=== PATIENT | female | born 1995 | race Two or more races ===

== ENCOUNTER 2023-09-17 14:24 | Emergency (ER) | payer MEDICAID, SELFPAY ==
[2023-09-17 14:32] VITALS: BP 104/61; PULSE 76; RESP 16; TEMP 36.3; O2SAT 100; BMI 25.4
--- NOTE | 2023-09-17 14:50 | ED_ITS ---
HPI - General Adult General Date Seen: 09/17/23 <Mariela Blas MD - Last Filed: 09/18/23 11:04> Chief complaint: Nausea/Vomiting <Mariela Blas MD - Last Filed: 09/18/23 11:04> Stated complaint: Severe morning sickness, weakness <Mariela Blas MD - Last Filed: 09/18/23 11:04> Time Seen by Provider: 09/17/23 14:33 <Mariela Blas MD - Last Filed: 09/18/23 11:04> Source: patient <Mariela Blas MD - Last Filed: 09/18/23 11:04> Mode of arrival: ambulatory <Mariela Blas MD - Last Filed: 09/18/23 11:04> Limitations: no limitations <Mariela Blas MD - Last Filed: 09/18/23 11:04> History of Present Illness HPI narrative: Patient is a 29-year-old woman who reports being she thinks 8 or 9 weeks although she is not sure when her last period was. She has had nausea and vomiting the last week and says she can not keep anything down. She does note at least 3 prior pregnancies with children, she says she has had more than 1 miscarriage but she is not sure how many. Of her live pregnancies, she says she did have problems with nausea and vomiting, denies other complications. She says last year she was diagnosed with H pylori for which she was treated, but she feels like the nausea and vomiting this time are worse because of that diagnosis. She does have plans to see our OB Clinic here although she has not been seen yet. Last night she had some pain in her right upper quadrant which she relates to constipation. She does not have abdominal pain now and denies any bleeding. No urinary symptoms. She feels cold, no fevers that she is aware of. <Mariela Blas MD - Last Filed: 09/18/23 11:04> Related Data Allergies/adverse reactions: Allergies Allergy/AdvReac Type Severity Reaction Status Date / Time No Known Drug Allergies Allergy Verified 09/17/23 14:30 <Mariela Blas MD - Last Filed: 09/18/23 11:04> Review of Systems Status of ROS: Reports: 6 or more systems reviewed and unremarkable except as noted in History and below <Mariela Blas MD - Last Filed: 09/18/23 11:04> [facility] Social History: Social History Smoking Status: Never smoker How often do you have a drink containing alcohol: never AUDIT-C Alcohol total score: 0 Non-prescribed substance use: denies use <Mariela Blas MD - Last Filed: 09/18/23 11:04> Exam Narrative: Exam Narrative: Vital signs as noted above. In general, an alert, well-appearing patient. Head: Normocephalic, atraumatic. Eyes: Pupils are equal reactive. Extraocular movements are full. Conjunctivae are normal. ENT: Mucous membranes are moist, lips are slightly dry. Neck: Supple without lymphadenopathy. Heart: Regular rate and rhythm. No murmur or rub. Lungs: Clear bilaterally. No increased work of breathing, crackles or wheezes. Abdomen: Soft and nontender. No organomegaly. Extremities: Well perfused. No edema. No calf tenderness. Pulses intact. Neurologic: Patient is alert and oriented to person and place. Speech is fluent. Face is symmetric. Moves all extremities equally. Affect: Normal. Skin: Warm and dry. Well perfused. <Mariela Blas MD - Last Filed: 09/18/23 11:04> Const: Vital Signs, click to edit/add: Vital Signs - 24 hr 09/17/23 14:32 Temperature 97.4 F L Pulse Rate [Pulse Oximeter] 76 Respiratory Rate 16 Blood Pressure [Ri ght Upper Arm] 104/61 Pulse Oximetry 100 Oxygen Delivery Me thod Room Air <Mariela Blas MD - Last Filed: 09/18/23 11:04> Vital Signs, click to edit/add: Vital Signs - 24 hr 09/17/23 14:32 Temperature 97.4 F L Pulse Rate [Pulse Oximeter] 76 Respiratory Rate 16 Blood Pressure [Ri ght Upper Arm] 104/61 Pulse Oximetry 100 Oxygen Delivery Me thod Room Air <Fer Hull MD - Last Filed: 09/17/23 16:47> Documenting provider has reviewed patient's vital signs: yes <Mariela Blas MD - Last Filed: 09/18/23 11:04> Course Course ED Course: Will hydrate with some IV normal saline mom gave her some Zofran. Will check some basic labs and just confirm with a quant hCG. Would not appear she needs other specific evaluation today. Labs are reassuring, UA was pending at the time of my departure. Signed out to the oncoming physician. Quant HCG was also ordered just to confirm . No indication for ultrasound today. She was able to eat and drink throughout her time here, no vomiting while here, did have a L of fluid and some Zofran, will prescribe Zofran for home and recommend OB follow-up this week for reassessment. Return any time for new symptoms such as abdominal pain or vaginal bleeding, otherwise, Zofran as needed encourage fluids. <Mariela Blas MD - Last Filed: 09/18/23 11:04> Vital Signs Vital signs: Initial Vital Signs Temperature 97.4 F L 09/17/23 14:32 Temperature Source Temporal Artery Scan 09/17/23 14:32 Pulse Rate 76 09/17/23 14:32 Respiratory Rate 16 09/17/23 14:32 Blood Pressure 104/61 09/17/23 14:32 Blood Pressure Mean 75 09/17/23 14:32 Blood Pressure Position Sitting 09/17/23 14:32 Pulse Oximetry 100 09/17/23 14:32 Oxygen Delivery Method Room Air 09/17/23 14:32 Vital Signs Temperature 97.4 F L 09/17/23 14:32 Pulse Rate 76 09/17/23 14:32 Respiratory Rate 16 09/17/23 14:32 Blood Pressure 104/61 09/17/23 14:32 Pulse Oximetry 100 09/17/23 14:32 Oxygen Delivery Method Room Air 09/17/23 14:32 Temperature 97.4 F L 09/17/23 14:32 Pulse Rate 76 09/17/23 14:32 Respiratory Rate 16 09/17/23 14:32 Blood Pressure 104/61 09/17/23 14:32 Pulse Oximetry 100 09/17/23 14:32 Oxygen Delivery Method Room Air 09/17/23 14:32 <Mariela Blas MD - Last Filed: 09/18/23 11:04> Initial Vital Signs Temperature 97.4 F L 09/17/23 14:32 Temperature Source Temporal Artery Scan 09/17/23 14:32 Pulse Rate 76 09/17/23 14:32 Respiratory Rate 16 09/17/23 14:32 Blood Pressure 104/61 09/17/23 14:32 Blood Pressure Mean 75 09/17/23 14:32 Blood Pressure Position Sitting 09/17/23 14:32 Pulse Oximetry 100 09/17/23 14:32 Oxygen Delivery Method Room Air 09/17/23 14:32 Vital Signs Temperature 97.4 F L 09/17/23 14:32 Pulse Rate 76 09/17/23 14:32 Respiratory Rate 16 09/17/23 14:32 Blood Pressure 104/61 09/17/23 14:32 Pulse Oximetry 100 09/17/23 14:32 Oxygen Delivery Method Room Air 09/17/23 14:32 Temperature 97.4 F L 09/17/23 14:32 Pulse Rate 76 09/17/23 14:32 Respiratory Rate 16 09/17/23 14:32 Blood Pressure 104/61 09/17/23 14:32 Pulse Oximetry 100 09/17/23 14:32 Oxygen Delivery Method Room Air 09/17/23 14:32 <Fer Hull MD - Last Filed: 09/17/23 16:47> Medications Administered Medications: Discontinued Medications Generic Name Dose Route Start Last Admin Trade Name Freq PRN Reason Stop Dose Admin Sodium Chloride 1,000 mls @ 1,000 mls/hr 09/17/23 15:00 09/17/23 15:46 0.9 % Sodium Chloride 1000 Ml IV 09/17/23 15:59 Infused .Q1H JAMAL Infusion Ondansetron HCl 4 mg 09/17/23 14:48 09/17/23 15:12 Ondansetron 2 Mg/Ml Inj IVP 09/17/23 14:49 4 mg ONCE ONE Administration <Mariela Blas MD - Last Filed: 09/18/23 11:04> Discontinued Medications Generic Name Dose Route Start Last Admin Trade Name Freq PRN Reason Stop Dose Admin Sodium Chloride 1,000 mls @ 1,000 mls/hr 09/17/23 15:00 09/17/23 15:46 0.9 % Sodium Chloride 1000 Ml IV 09/17/23 15:59 Infused .Q1H JAMAL Infusion Ondansetron HCl 4 mg 09/17/23 14:48 07/20/24 15:12 Ondansetron 2 Mg/Ml Inj IVP 09/17/23 14:49 4 mg ONCE ONE Administration <Fer Hull MD - Last Filed: 09/17/23 16:47> Medical Decision Making MDM Narrative Medical decision making narrative: Lab results returned with reassuring findings. Her quantitative beta hCG is appropriate for her gestational age of . A prescription for Zofran is provided. <Fer Hull MD - Last Filed: 09/17/23 16:47> Lab Data Labs: Lab Results 09/17/23 09/17/23 Range/Units 15:05 15:49 WBC 6.11 (4.50-11.00) K/uL RBC 4.45 (4.00-5.20) m/uL Hgb 11.8 L (12.0-16.0) gm/dL Hct 36.0 (33.0-51.0) % MCV 81 (80-100) fL MCH 27 (26-34) pg MCHC 33 (32-36) gm/dL RDW Coeff of Sandrine 16.3 H (11.5-15.5) % Plt Count 319 (140-440) K/uL Neut % (Auto) 63.3 (42.0-72.0) % Lymph % (Auto) 28.8 (20-44) % [place] % (Auto) 6.4 (0.0-11.0) % Eos % (Auto) 0.8 (0.0-7.0) % Baso % (Auto) 0.5 (0.0-3.0) % Neut # (Auto) 3.87 (1.7-7.0) K/uL Lymph # (Auto) 1.76 (0.90-2.90) K/uL [place] # (Auto) 0.40 (0.00-0.90) K/UL Eos # (Auto) 0.05 (0.00-0.50) K/uL Baso # (Auto) 0.03 (0.00-0.30) K/uL Abs Immat Gran (auto) 0.01 (0.00-0.30) K/uL Imm/Tot Granulo (auto) 0.2 % Sodium 134 L (135-149) mmol/L Potassium 3.7 (3.6-5.1) mmol/L Chloride 104 (96-114) mmol/L Carbon Dioxide 23 (20-32) mmol/L Anion Gap 7 (7-15) mEq/L BUN 5 (5-24) mg/dL Creatinine 0.5 (0.5-1.5) mg/dL Estimated Creat Clear 143.36 Estimated GFR 130 ml/min Glucose 102 (60-115) mg/dL Calcium 9.3 (8.4-10.6) mg/dL Magnesium 1.8 (1.5-2.6) mg/dL HCG, Quant 203560.00 mIU/mL Urine Color Yellow (Yellow) Urine Appearance Clear (Clear) Urine pH 7.0 (5.0-8.5) Ur Specific [place] 1.010 (1.000-1.030) Urine Protein Negative (Negative) Urine Glucose (UA) Negative (Negative) Urine Ketones Negative (Negative) Urine Blood Negative (Negative) Urine Nitrite Negative (Negative) Urine Bilirubin Negative (Negative) Urine Urobilinogen 0.2 (0.2-1.0) Ur Leukocyte Esterase Trace A (Negative) Urine RBC 0-2 (0-2) Urine WBC 2-5 (0-5) Ur Squamous Epith Cells Few (None-Few) Urine Bacteria None (None) <Mariela Blas MD - Last Filed: 09/18/23 11:04> Lab Results 09/17/23 09/17/23 Range/Units 15:05 15:49 WBC 6.11 (4.50-11.00) K/uL RBC 4.45 (4.00-5.20) m/uL Hgb 11.8 L (12.0-16.0) gm/dL Hct 36.0 (33.0-51.0) % MCV 81 (80-100) fL MCH 27 (26-34) pg MCHC 33 (32-36) gm/dL RDW Coeff of Sandrine 16.3 H (11.5-15.5) % Plt Count 319 (140-440) K/uL Neut % (Auto) 63.3 (42.0-72.0) % Lymph % (Auto) 28.8 (20-44) % [place] % (Auto) 6.4 (0.0-11.0) % Eos % (Auto) 0.8 (0.0-7.0) % Baso % (Auto) 0.5 (0.0-3.0) % Neut # (Auto) 3.87 (1.7-7.0) K/uL Lymph # (Auto) 1.76 (0.90-2.90) K/uL [place] # (Auto) 0.40 (0.00-0.90) K/UL Eos # (Auto) 0.05 (0.00-0.50) K/uL Baso # (Auto) 0.03 (0.00-0.30) K/uL Abs Immat Gran (auto) 0.01 (0.00-0.30) K/uL Imm/Tot Granulo (auto) 0.2 % Sodium 134 L (135-149) mmol/L Potassium 3.7 (3.6-5.1) mmol/L Chloride 104 (96-114) mmol/L Carbon Dioxide 23 (20-32) mmol/L Anion Gap 7 (7-15) mEq/L BUN 5 (5-24) mg/dL Creatinine 0.5 (0.5-1.5) mg/dL Estimated Creat Clear 143.36 Estimated GFR 130 ml/min Glucose 102 (60-115) mg/dL Calcium 9.3 (8.4-10.6) mg/dL Magnesium 1.8 (1.5-2.6) mg/dL HCG, Quant 894573.00 mIU/mL Urine Color Yellow (Yellow) Urine Appearance Clear (Clear) Urine pH 7.0 (5.0-8.5) Ur Specific [place] 1.010 (1.000-1.030) Urine Protein Negative (Negative) Urine Glucose (UA) Negative (Negative) Urine Ketones Negative (Negative) Urine Blood Negative (Negative) Urine Nitrite Negative (Negative) Urine Bilirubin Negative (Negative) Urine Urobilinogen 0.2 (0.2-1.0) Ur Leukocyte Esterase Trace A (Negative) Urine RBC 0-2 (0-2) Urine WBC 2-5 (0-5) Ur Squamous Epith Cells Few (None-Few) Urine Bacteria None (None) <Fer Hull MD - Last Filed: 09/17/23 16:47> Discharge Plan Discharge Clinical Impression: Hyperemesis gravidarum <Mariela Blas MD - Last Filed: 09/18/23 11:04> Patient Disposition: Home, Self-Care <Mariela Blas MD - Last Filed: 09/18/23 11:04> Condition: Improved <Mariela Blas MD - Last Filed: 09/18/23 11:04> Instructions: Hyperemesis Gravidarum (ED) <Mariela Blas MD - Last Filed: 09/18/23 11:04> Additional Instructions: Zofran if needed for nausea. Please follow-up with OB Clinic in the next week. Return as needed for persistent symptoms despite treatment or new symptoms such as abdominal pain or bleeding. <Mariela Blas MD - Last Filed: 09/18/23 11:04> Follow Up/Referrals: Provider,Not a Local [Primary Care Provider] - <Mariela Blas MD - Last Filed: 09/18/23 11:04> Stand Alone Forms: [facility] Info Instructions <Mariela Blas MD - Last Filed: 09/18/23 11:04>
[2023-09-17 15:10] LABS: Basophils Absolute Auto 0.03 K/uL (0.00-0.30); Basophils Percent Auto 0.5 % (0.0-3.0); Eosinophils Absolute Auto 0.05 K/uL (0.00-0.50); Eosinophils Percent Auto 0.8 % (0.0-7.0); Hemoglobin* 11.8 gm/dL (12.0-16.0); Immature Granulocytes Abs Auto 0.01 K/uL (0.00-0.30); Immature Granulocytes Pct Auto 0.2 %; Lymphocytes Absolute Auto 1.76 K/uL (0.90-2.90); Lymphocytes Percent Auto 28.8 % (20-44); Mean Corpuscular HGB Conc 33 gm/dL (32-36); Mean Corpuscular Hemoglobin 27 pg (26-34); Mean Corpuscular Volume 81 fL (80-100); Monocytes Percent Auto 6.4 % (0.0-11.0); Neutrophils Absolute Auto 3.87 K/uL (1.7-7.0); Neutrophils Percent Auto 63.3 % (42.0-72.0); Platelet Count* 319 K/uL (140-440); RDW Coefficient of Variation % 16.3 % (11.5-15.5); Red Blood Count 4.45 m/uL (4.00-5.20); White Blood Count* 6.11 K/uL (4.50-11.00)
[2023-09-17] MEDS: 0.9 % SODIUM CHLORIDE 1000 ml 1,000 ML IV (15:10)
[2023-09-17] MEDS: ONDANSETRON 2 MG/ML inj 4 MG IVP (15:12)
[2023-09-17 15:13] LABS: Slide Review Reflex No
[2023-09-17 15:22] LABS: Chloride* 104 mmol/L (96-114); Sodium* 134 mmol/L (135-149)
[2023-09-17 15:23] LABS: Potassium* 3.7 mmol/L (3.6-5.1)
[2023-09-17 15:25] LABS: Anion Gap 7 mEq/L (7-15); Carbon Dioxide* 23 mmol/L (20-32); Creatinine* 0.5 mg/dL (0.5-1.5); Est. Creatinine Clearance* 143.36; Estimated Glomerular Filt Rate 130 ml/min; Magnesium* 1.8 mg/dL (1.5-2.6)
[2023-09-17 15:26] LABS: Blood Urea Nitrogen* 5 mg/dL (5-24); Calcium* 9.3 mg/dL (8.4-10.6); Glucose* 102 mg/dL (60-115)
[2023-09-17 15:54] LABS: Appearance Urine Clear (Clear); Bilirubin Urine Negative (Negative); Blood Urine Negative (Negative); Color Urine Yellow (Yellow); Glucose Urine Negative (Negative); Ketones Urine Negative (Negative); Leukocyte Esterase Urine Trace (Negative); Nitrite Urine Negative (Negative); Protein Urine Negative (Negative); Urobilinogen Urine 0.2 (0.2-1.0)
[2023-09-17 16:04] LABS: RBC Urine 0-2 (0-2); Squamous Epithelial Cell Urine Few (None-Few)
== END 2023-09-17 16:50 | disposition home or self-care (01) ==
PROVIDERS: Emergency Provider Emergency Medicine
DX: O21.0 Mild hyperemesis gravidarum (principal)
CPT/HCPCS: 36415; 80048; 81001; 83735; 84702; 85025; 87086; 96374; 99284; J2405; J7030

== ENCOUNTER 2023-09-28 16:08 | Emergency (ER) | payer MEDICAID, SELFPAY ==
[2023-09-28 16:13] VITALS: BP 105/64; PULSE 85; RESP 18; TEMP 35.7; O2SAT 98; BMI 25.5
--- NOTE | 2023-09-28 16:45 | ED_ITS ---
HPI - Nausea/Vomiting/Diarrhea General Date Seen: 09/28/23 Chief complaint: Nausea/Vomiting Stated complaint: HG Time Seen by Provider: 09/28/23 16:10 Source: patient Mode of arrival: ambulatory Limitations: no limitations History of Present Illness HPI Narrative: Patient is a 29-year-old female presenting to the emergency department for nausea and vomiting. She is 11 weeks . She was seen in this emergency department 11 days ago for similar symptoms. At that time she was discharged with Zofran with minimal improvement in her symptoms. She has been trying to get in with her OB [facility] but cannot get in until next Tuesday. Was told to come the emergency department if she has worsening symptoms. States due to the nausea and stomach cramping she has not been able to eat or drink much over the past couple weeks. Also states she has not had a bowel movement in a while is concerned she is constipated. Denies fevers, chills, vaginal bleeding, vaginal discharge, lightheadedness, dizziness, weakness, chest pain, shortness of breath. Has not had any complications with her previous pregnancies. States the 1st time she has had hyperemesis gravidarum. Related Data Home Medications ?Medication ?Instructions ?Recorded ?Confirmed ondansetron 4 mg disintegrating 4 mg PO 3XD PRN nausea/vomiting 09/28/23 09/28/23 tablet Previous Rx's ?Medication ?Instructions ?Recorded cephalexin 250 mg capsule 250 mg PO QID #20 caps 09/28/23 metoclopramide HCl 10 mg tablet 10 mg PO Q6H PRN nausea and 09/28/23 (Reglan) vomiting #20 tabs Allergies Allergy/AdvReac Type Severity Reaction Status Date / Time No Known Drug Allergies Allergy Verified 09/28/23 16:20 Review of Systems Status of ROS: Reports: 10 or more systems reviewed and unremarkable except as noted in History and below PFS PFS Social History Smoking Status: Never smoker Do you use any of these nicotine containing products: None Second hand tobacco smoke exposure: No How often do you have a drink containing alcohol: never AUDIT-C Alcohol total score: 0 Non-prescribed substance use: denies use service: No Exam Narrative: Exam Narrative: Const: Well-nourished, Well-developed, in mild distress Eyes: PERRL, no conjunctival injection, and symmetrical lids HENT: Atraumatic external nose and ears. Moist mucous membranes. Neck: Symmetric, trachea midline, No thyromegaly. CVS: RRR, No murmurs or gallops. Peripheral pulses 2+ and equal in all extremities RESP: Unlabored respiratory effort. Clear to auscultation bilaterally. GI: Nontender/Nondistended, No rebound or guarding. MSK:Extremities w/o deformity, Normal Active ROM Skin: Warm, Dry. No rashes or lesions. Neuro: Normal Muscle tone, No focal neurological deficits. Psych: Awake, Alert, & Oriented x3. Appropriate mood and affect. Const: Vital Signs, click to edit/add: Vital Signs - 24 hr 09/28/23 16:13 Temperature 96.2 F L Pulse Rate [Pulse Oximeter] 85 Respiratory Rate 18 Blood Pressure [Ri ght Upper Arm] 105/64 Pulse Oximetry 98 Oxygen Delivery Me thod Room Air Course Vital Signs Vital signs: Initial Vital Signs Temperature 96.2 F L 09/28/23 16:13 Temperature Source Temporal Artery Scan 09/28/23 16:13 Pulse Rate 85 09/28/23 16:13 Respiratory Rate 18 09/28/23 16:13 Blood Pressure 105/64 09/28/23 16:13 Blood Pressure Mean 77 09/28/23 16:13 Blood Pressure Position Sitting 09/28/23 16:13 Pulse Oximetry 98 09/28/23 16:13 Oxygen Delivery Method Room Air 09/28/23 16:13 Vital Signs Temperature 96.2 F L 09/28/23 16:13 Pulse Rate 85 09/28/23 16:13 Respiratory Rate 18 09/28/23 16:13 Blood Pressure 105/64 09/28/23 16:13 Pulse Oximetry 98 09/28/23 16:13 Oxygen Delivery Method Room Air 09/28/23 16:13 Temperature 96.2 F L 09/28/23 16:13 Pulse Rate 85 09/28/23 16:13 Respiratory Rate 18 09/28/23 16:13 Blood Pressure 105/64 09/28/23 16:13 Pulse Oximetry 98 09/28/23 16:13 Oxygen Delivery Method Room Air 09/28/23 16:13 Medications Administered Medications: Generic Name Dose Route Start Last Admin Trade Name Freq PRN Reason Stop Dose Admin Lactated Ringer's 1,000 mls @ 1,000 mls/hr 09/28/23 16:39 09/28/23 16:55 Lactated Ringers 1000 Ml IV 09/28/23 17:38 1,000 mls/hr .Q1H ONE Administration Discontinued Medications Generic Name Dose Route Start Last Admin Trade Name Freq PRN Reason Stop Dose Admin Metoclopramide HCl 10 mg 09/28/23 16:39 09/28/23 16:55 Metoclopramide Hcl 5 Mg/Ml Inj IVP 09/28/23 16:40 10 mg ONCE ONE Administration MDM - Nausea/Vomiting/Diarrhea MDM Narrative Medical decision making narrative: Patient is a 29-year-old female presenting for nausea and vomiting. She has been trying Zofran home with no improvement. Will try Reglan. Will check a urinalysis to look for signs of dehydration. Also ordered a CBC, CMP, magnesium, lipase. 1 L of lactated Ringer's ordered. Patient's nausea improved with the Reglan. CBC and CMP showed no concerning abnormalities. Urinalysis shows a possible UTI but it is contaminated. Although considering she is having all this associated nausea and she is I will treat her as a urinary tract infection. She will be discharged at this time. Will be discharged with Reglan and Keflex. She is agreeable to this plan. He Lab Data Labs: Lab Results 09/28/23 09/28/23 Range/Units 16:48 17:00 WBC 7.75 (4.50-11.00) K/uL RBC 4.32 (4.00-5.20) m/uL Hgb 11.6 L (12.0-16.0) gm/dL Hct 35.0 (33.0-51.0) % MCV 81 (80-100) fL MCH 27 (26-34) pg MCHC 33 (32-36) gm/dL RDW Coeff of Sandrine 16.5 H (11.5-15.5) % Plt Count 312 (140-440) K/uL Neut % (Auto) 62.6 (42.0-72.0) % Lymph % (Auto) 29.5 (20-44) % [place] % (Auto) 6.3 (0.0-11.0) % Eos % (Auto) 1.0 (0.0-7.0) % Baso % (Auto) 0.5 (0.0-3.0) % Neut # (Auto) 4.84 (1.7-7.0) K/uL Lymph # (Auto) 2.29 (0.90-2.90) K/uL [place] # (Auto) 0.50 (0.00-0.90) K/UL Eos # (Auto) 0.08 (0.00-0.50) K/uL Baso # (Auto) 0.04 (0.00-0.30) K/uL Abs Immat Gran (auto) 0.01 (0.00-0.30) K/uL Imm/Tot Granulo (auto) 0.1 % Sodium 135 (135-149) mmol/L Potassium 3.6 (3.6-5.1) mmol/L Chloride 107 (96-114) mmol/L Carbon Dioxide 20 (20-32) mmol/L Anion Gap 8 (7-15) mEq/L BUN 9 (5-24) mg/dL Creatinine 0.6 (0.5-1.5) mg/dL Estimated Creat Clear 119.47 Estimated GFR 125 ml/min Glucose 100 (60-115) mg/dL Calcium 9.0 (8.4-10.6) mg/dL Magnesium 1.8 (1.5-2.6) mg/dL Total Bilirubin 0.4 (0.1-1.5) mg/dL AST 19 (12-35) U/L ALT 8 (4-35) U/L Alkaline Phosphatase 53 (40-150) U/L Total Protein 7.3 (6.0-8.3) g/dL Albumin 4.1 (3.3-5.0) g/dL Lipase 51 (23-300) U/L Urine Color Yellow (Yellow) Urine Appearance Cloudy A (Clear) Urine pH 6.0 (5.0-8.5) Ur Specific [place] >= 1.030 (1.000-1.030) Urine Protein Trace A (Negative) Urine Glucose (UA) Negative (Negative) Urine Ketones Trace A (Negative) Urine Blood Trace-intact A (Negative) Urine Nitrite Negative (Negative) Urine Bilirubin Negative (Negative) Urine Urobilinogen 1.0 (0.2-1.0) Ur Leukocyte Esterase 1+ A (Negative) Urine RBC 2-5 A (0-2) Urine WBC 10-25 A (0-5) Ur Squamous Epith Cells Moderate A (None-Few) Urine Bacteria Moderate A (None) Discharge Plan Discharge Clinical Impression: Hyperemesis gravidarum UTI (urinary tract infection) Qualifiers: Urinary tract infection type: site unspecified Hematuria presence: without hematuria Qualified Code(s): N39.0 - Urinary tract infection, site not specified Patient Disposition: Home, Self-Care Condition: Improved Instructions: Hyperemesis Gravidarum (ED), Urinary Tract Infection in (ED) Additional Instructions: Stop taking Zofran use Reglan instead. Take antibiotics as directed. Return for new worsening symptoms. Prescriptions: New metoclopramide HCl [Reglan] 10 mg tablet 10 mg PO Q6H PRN (Reason: nausea and vomiting) Qty: 20 0RF cephalexin 250 mg capsule 250 mg PO QID Qty: 20 0RF No Action ondansetron 4 mg tablet,disintegrating 4 mg PO 3XD PRN (Reason: nausea/vomiting) Follow Up/Referrals: Provider,Not a Local [Primary Care Provider] - Stand Alone Forms: [employer] Info Instructions
[2023-09-28] MEDS: LACTATED RINGERS 1000 ML 1,000 ML IV (16:55)
[2023-09-28] MEDS: METOCLOPRAMIDE HCL 5 MG/ML INJ 10 MG IVP (16:55)
[2023-09-28 17:03] LABS: Appearance Urine Cloudy (Clear); Bilirubin Urine Negative (Negative); Blood Urine Trace-intact (Negative); Color Urine Yellow (Yellow); Glucose Urine Negative (Negative); Ketones Urine Trace (Negative); Leukocyte Esterase Urine 1+ (Negative); Nitrite Urine Negative (Negative); Protein Urine Trace (Negative); Specific Gravity Urine >= 1.030 (1.000-1.030)
[2023-09-28 17:08] LABS: Basophils Absolute Auto 0.04 K/uL (0.00-0.30); Basophils Percent Auto 0.5 % (0.0-3.0); Eosinophils Absolute Auto 0.08 K/uL (0.00-0.50); Hemoglobin* 11.6 gm/dL (12.0-16.0); Immature Granulocytes Abs Auto 0.01 K/uL (0.00-0.30); Immature Granulocytes Pct Auto 0.1 %; Lymphocytes Absolute Auto 2.29 K/uL (0.90-2.90); Lymphocytes Percent Auto 29.5 % (20-44); Mean Corpuscular HGB Conc 33 gm/dL (32-36); Mean Corpuscular Hemoglobin 27 pg (26-34); Mean Corpuscular Volume 81 fL (80-100); Monocytes Percent Auto 6.3 % (0.0-11.0); Neutrophils Absolute Auto 4.84 K/uL (1.7-7.0); Neutrophils Percent Auto 62.6 % (42.0-72.0); Platelet Count* 312 K/uL (140-440); RDW Coefficient of Variation % 16.5 % (11.5-15.5); Red Blood Count 4.32 m/uL (4.00-5.20); White Blood Count* 7.75 K/uL (4.50-11.00)
[2023-09-28 17:12] LABS: Slide Review Reflex No
[2023-09-28 17:20] LABS: Albumin* 4.1 g/dL (3.3-5.0); Chloride* 107 mmol/L (96-114); Sodium* 135 mmol/L (135-149)
[2023-09-28 17:21] LABS: Potassium* 3.6 mmol/L (3.6-5.1)
[2023-09-28 17:22] LABS: Creatinine* 0.6 mg/dL (0.5-1.5); Est. Creatinine Clearance* 119.47; Estimated Glomerular Filt Rate 125 ml/min
[2023-09-28 17:23] LABS: Alanine Aminotransferase* 8 U/L (4-35); Alkaline Phosphatase* 53 U/L (40-150); Anion Gap 8 mEq/L (7-15); Aspartate Amino Transferase* 19 U/L (12-35); Bilirubin Total* 0.4 mg/dL (0.1-1.5); Blood Urea Nitrogen* 9 mg/dL (5-24); Carbon Dioxide* 20 mmol/L (20-32); Glucose* 100 mg/dL (60-115); Lipase* 51 U/L (23-300); Total Protein* 7.3 g/dL (6.0-8.3)
[2023-09-28 17:24] LABS: Magnesium* 1.8 mg/dL (1.5-2.6)
[2023-09-28 17:26] LABS: Bacteria Urine Moderate; Squamous Epithelial Cell Urine Moderate (None-Few)
--- NOTE | 2023-12-23 14:30 | PC.SOCIAL ---
Social work consult: The social work department received a referral on the pt from the [facility] on Tuesday12/16/2023. Throughout the week of 12/18-12/22, social sciences lecturer made several attempts to contact pt at phone #[phone]. There was no answer every time and this worker was unable to leave a voice message due to the voicemail box being full. Social work to follow-up as needed.
== END 2023-09-28 17:42 | disposition home or self-care (01) ==
PROVIDERS: Emergency Provider Student in an Organized Health Care Education/Training Program
DX: O21.0 Mild hyperemesis gravidarum (principal); Z3A.11 11 weeks gestation of pregnancy; N39.0 Urinary tract infection, site not specified
CPT/HCPCS: 36415; 80053; 81001; 83690; 83735; 85025; 87086; 96374; 99282; 99283; J2765; J7120

== ENCOUNTER 2023-10-07 11:20 | Outpatient (CLI) | payer BC, SELFPAY ==
--- NOTE | 2023-10-07 11:15 | CRLHL7_ITS ---
For Patients: As a result of the Century Cures Act, medical imaging exams and procedure reports are released immediately into your electronic medical record. You may view this report before your referring provider. If you have questions, please contact your health care provider. INDICATION: First trimester scan, establish dates. COMPARISON: None. TECHNIQUE: Real-time giordano-scale imaging of the pelvis was performed. FINDINGS: Sonographic imaging demonstrates a single living intrauterine gestation. The embryo demonstrates a regular cardiac rate measuring 169 beats per minute. The embryo`s crown-rump length measurement of 5.8 cm corresponds to a gestational age of 12 weeks 2 days with a sonographic due date of 04/18/2024. There is a normal-appearing yolk sac. There are no gross abnormalities noted within the embryo at this early state of development. The gestational sac has a normal appearance. There is a 2.1 x 1.7 x 0.7 cm perigestational hemorrhage. The amount of fluid within the sac appears appropriate for gestational age. The cervix is closed. The myometrium appears normal. Corpus luteal cyst right ovary. Left ovary not visualized. There are no suspicious fluid collections noted in the cul-de-sac. IMPRESSION: Single living intrauterine with sonographic gestational age 12 weeks 2 days and sonographic due date of 04/18/2024. Subchorionic hemorrhage measuring 2.1 x 1.7 x 0.7 cm. Dictated by Raoul Carroll MD @ 10/07/2023 12:02:13 PM (Electronically Signed)
== END 2023-10-07 11:21 | disposition home or self-care (01) ==
PROVIDERS: Visit Provider Advanced Practice Midwife
DX: Z34.92 Encounter for supervision of normal pregnancy, unspecified, second trimester (principal); Z3A.15 15 weeks gestation of pregnancy
CPT/HCPCS: 76801; 82728; 86592; 86703; 86704; 86706; 86762; 86787; 86803; 86850; 86900; 86901; 87086; 87338; 87340; 87491; 87591

== ENCOUNTER 2023-12-02 10:12 | Outpatient (CLI) | payer BC, SELFPAY ==
--- NOTE | 2023-12-02 10:15 | CRLHL7_ITS ---
For Patients: As a result of the Century Cures Act, medical imaging exams and procedure reports are released immediately into your electronic medical record. You may view this report before your referring provider. If you have questions, please contact your health care provider. INDICATION: Evaluate anatomy. TECHNIQUE: Real time giordano scale imaging of the fetus was performed as well as color Doppler analysis of the umbilical vessels. FINDINGS: Sonographic imaging demonstrates a single living intrauterine gestation. Fetus demonstrates a regular cardiac rate of 142 beats per minute. Fetus has a breech position. The placenta lies posteriorly without evidence of placenta previa. Placental edge 4.7 cm from the internal cervical os. Amniotic fluid volume appears normal. Single deepest vertical pocket: 3.5 cm. The cervix is closed and measures 3.3 cm in length. The composite ultrasound gestational age is calculated at 19 weeks 3 days with an estimated sonographic due date of 04/24/2024. The estimated weight is 316 grams which lies at the 23rd %. The following biometric measurements were obtained: Biparietal diameter: 4.2 cm/18 weeks 5 days 3rd% Head circumference: 16.9 cm/19 weeks 4 days 13th% Abdominal circumference: 14.5 cm/19 weeks 5 days 28th% Femur length: 3.2 cm/20 weeks 0 days 34th% The HC/AC ratio measures: 1.17 range (1.08-1.26) On anatomic survey, there is a normal appearance of the cerebral ventricles, cavum septi pellucidi, cisterna magna and cerebellum. The nose, lips, and facial profile appear normal. The cervical, thoracic and lumbar spine are not well visualized. There is a normal four-chamber heart view and the left and right ventricular outflow tracts appear normal. The diaphragm and stomach appear normal. The kidneys are not well visualized. The bladder appears normal. There is a normal three-vessel cord and cord insertion site. The hands are not well visualized. IMPRESSION: Sonographic gestational age 19 weeks 3 days and sonographic due date of 04/24/2024. Sonographic age is 6 days behind the clinical age. Estimated weight 23rd percentile. Abdominal circumference 28th percentile. Incomplete visualization of the spine, kidneys and hands. Remainder of the anatomic survey normal. Short-term follow-up recommended. Dictated by Raoul Carroll MD @ 12/04/2023 10:24:09 PM (Electronically Signed)
== END 2023-12-02 10:13 | disposition home or self-care (01) ==
LOC: US 10:12
PROVIDERS: Visit Provider Midwife
DX: Z34.92 Encounter for supervision of normal pregnancy, unspecified, second trimester (principal); O35.GXX0 Maternal care for other (suspected) fetal abnormality and damage, fetal upper extremities anomalies, not applicable or unspecified; O35.FXX0 Maternal care for other (suspected) fetal abnormality and damage, fetal musculoskeletal anomalies of trunk, not applicable or unspecified; Z3A.19 19 weeks gestation of pregnancy
CPT/HCPCS: 76805

== ENCOUNTER 2023-12-16 10:35 | Outpatient (CLI) | payer BC, SELFPAY ==
--- NOTE | 2023-12-16 10:30 | CRLHL7_ITS ---
For Patients: As a result of the Century Cures Act, medical imaging exams and procedure reports are released immediately into your electronic medical record. You may view this report before your referring provider. If you have questions, please contact your health care provider. OBSTETRICAL ULTRASOUND LIMITED, 12/16/2023 INDICATION: Follow-up spine, kidney and hand views. 6, para 3 [place] by US: 04/18/2024 Gestational age: 22 weeks 2 days COMPARISON: 12/02/2023. TECHNIQUE: Transabdominal obstetrical ultrasound. FINDINGS: Gestation: Single Cervix: Not visualized positioning: Vertex Placenta position: Posterior, left wall heart rate: 139 bpm IMPRESSION: The hands, spine and kidneys were seen and appear normal. KATERINE HANCOCK M.D. Body/Diagnostic Radiologist [email or web address] Transcribed: 10:[address]/Dictated by: Katerine Hancock MD @ 12/20/2023 8:55:00 AM (Electronically Signed)
== END 2023-12-16 10:36 | disposition home or self-care (01) ==
LOC: US 10:35
PROVIDERS: Visit Provider Advanced Practice Midwife
DX: O35.EXX0 Maternal care for other (suspected) fetal abnormality and damage, fetal genitourinary anomalies, not applicable or unspecified (principal); O35.FXX0 Maternal care for other (suspected) fetal abnormality and damage, fetal musculoskeletal anomalies of trunk, not applicable or unspecified; O35.GXX0 Maternal care for other (suspected) fetal abnormality and damage, fetal upper extremities anomalies, not applicable or unspecified; Z3A.22 22 weeks gestation of pregnancy
CPT/HCPCS: 76816

== ENCOUNTER 2024-01-22 12:22 | Emergency (ER) | payer BC, SELFPAY ==
[2024-01-22 12:25] VITALS: BP 101/65; PULSE 102; RESP 24; TEMP 36.6; O2SAT 98; BMI 25.0
--- NOTE | 2024-01-22 12:47 | CRLHL7_ITS ---
For Patients: As a result of the Cures Act, medical imaging exams and procedure reports are released immediately into your electronic medical record. You may view this report before your referring provider. If you have questions, please contact your health care provider. INDICATION: Cough for 2 weeks, concern for pneumonia TECHNIQUE: Chest radiograph 2 views COMPARISON: None FINDINGS: Mediastinum: The mediastinum is normal in appearance. The heart silhouette is normal in size and morphology. Lung: Both lungs are unremarkable in appearance. No sign of pleural effusion seen. No pneumothorax is identified. Bone and Soft tissue: Unremarkable for age. IMPRESSION: 1. No acute cardiopulmonary disease is seen. Dictated by: Harish Cat MD @ 01/22/2024 13:46:36 (Electronically Signed)
[2024-01-22 13:35] LABS: PCR FLU A Negative PCR FLU A (Negative); PCR FLU B Negative PCR FLU B (Negative); PCR RSV Negative PCR RSV (Negative); SARS PCR* Negative SARS-CoV-2 (Negative)
--- NOTE | 2024-01-22 13:37 | ED.GENADULT ---
HPI - General Adult General Date Seen: 01/22/24 Chief complaint: Cough Stated complaint: cough, sob Time Seen by Provider: 01/22/24 12:33 Source: patient Mode of arrival: ambulatory Limitations: no limitations History of Present Illness HPI narrative: Patient is a 29-year-old female 28 weeks presenting to the emergency department for cough and viral symptoms for the past 2 weeks. She states she is not aware of any sick contacts but has been coughing up some mucus. Feels congested in her chest. Feels like sometimes she is short of breath. Symptoms have not been getting better so she was concerned and came to be evaluated. Denies lightheadedness, dizziness, abdominal pain, nausea/vomiting, weakness, numbness, fevers, chills. Is not aware of any sick contacts. No history of blood clots. Has not noticed any lower extremity edema. Related Data Home Medications ?Medication ?Instructions ?Recorded ?Confirmed No Known Home Medications 01/22/24 01/22/24 Allergies Allergy/AdvReac Type Severity Reaction Status Date / Time No Known Drug Allergies Allergy Verified 01/22/24 12:29 Review of Systems Status of ROS: Reports: 10 or more systems reviewed and unremarkable except as noted in History and below PFSH PFSH Medical History H. 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 Lives with: and kids Pets: none Abuse: Denies past/present Special Diet: Lactose intolerant Ok with a blood transfusion: yes Culture or mandaeism beliefs: denies RISK FACTORS Exercise Times/wk: not currently, encouraged when feeling better Depression/Anxiety: denies MIKE: 0 PHQ 9: 0 Seat Belt Use: Routinely Smoking: Denies past/present Alcohol/day: Denies while Caffeine: none Drug Use: Denies past/present Chicken Pox: Yes as a child MRSA: Denies What is your current living situation?: I presently have a place to live Problems where you live: no known problems In the past 12 months, utilities in danger of being shut off: no In the past 12 mos, have been you worried that your food would run out before you had money to buy more?: never true In the past 12 mos, the food you bought just didn't last and you didn't have money to buy more?: never true Smoking Status: Never smoker Do you use any of these nicotine containing products: None Second hand tobacco smoke exposure: No How often do you have a drink containing alcohol: never AUDIT-C Alcohol total score: 0 Non-prescribed substance use: denies use How often does anyone, including family, friends and others, physically hurt you: never How often does anyone, including family, friends and others, insult or talk down to you: never How often does anyone, including family, friends and others, threaten you with harm: never How often does anyone, including family, friends and others, scream or curse at you: never service: No Exam Narrative: Exam Narrative: Const: Well-nourished, Well-developed, in mild distress Eyes: PERRL, no conjunctival injection, and symmetrical lids HENT: Atraumatic external nose and ears. Moist mucous membranes. Neck: Symmetric, trachea midline, No thyromegaly. CVS: RRR, No murmurs or gallops. Peripheral pulses 2+ and equal in all extremities RESP: Unlabored respiratory effort. Clear to auscultation bilaterally. GI: Nontender/Nondistended, No rebound or guarding. MSK:Extremities w/o deformity, Normal Active ROM Skin: Warm, Dry. No rashes or lesions. Neuro: Normal Muscle tone, No focal neurological deficits. Psych: Awake, Alert, & Oriented x3. Appropriate mood and affect. Const: Vital Signs, click to edit/add: Vital Signs - 24 hr 01/22/24 12:25 Temperature 97.9 F Pulse Rate [Pulse Oximeter] 102 H Respiratory Rate 24 Blood Pressure [Ri ght Upper Arm] 101/65 Pulse Oximetry 98 Oxygen Delivery Me thod Room Air Course Vital Signs Vital signs: Initial Vital Signs Temperature 97.9 F 01/22/24 12:25 Temperature Source Oral 01/22/24 12:25 Pulse Rate 102 H 01/22/24 12:25 Pulse Rhythm Regular 01/22/24 12:25 Pulse Strength 3+ Normal 01/22/24 12:25 Respiratory Rate 24 01/22/24 12:25 Blood Pressure 101/65 01/22/24 12:25 Blood Pressure Mean 77 01/22/24 12:25 Blood Pressure Position Sitting 01/22/24 12:25 Pulse Oximetry 98 01/22/24 12:25 Oxygen Delivery Method Room Air 01/22/24 12:25 Vital Signs Temperature 97.9 F 01/22/24 12:25 Pulse Rate 102 H 01/22/24 12:25 Respiratory Rate 24 01/22/24 12:25 Blood Pressure 101/65 01/22/24 12:25 Pulse Oximetry 98 01/22/24 12:25 Oxygen Delivery Method Room Air 01/22/24 12:25 Temperature 97.9 F 01/22/24 12:25 Pulse Rate 102 H 01/22/24 12:25 Respiratory Rate 24 01/22/24 12:25 Blood Pressure 101/65 01/22/24 12:25 Pulse Oximetry 98 01/22/24 12:25 Oxygen Delivery Method Room Air 01/22/24 12:25 Medical Decision Making MDM Narrative Medical decision making narrative: Patient is a 29-year-old female presenting to emergency department for flu-like symptoms. She is agreeable to a COVID/flu/RSV swab. Will do chest x-ray to look for signs of pneumonia. I spoke to her about her elevated risk of blood clots due to being . I explained that there is not any proven risk of CT scan specially to the chest to the her fetus. Despite that she is resistant to doing a CTA of the chest if lab work which showed elevated D-dimer. When not check lab work in that case. Considering symptoms seem to be all viral this does seem reasonable. Viral swabs are negative. Chest x-ray shows no acute concerning abnormalities. She states previously with her she had some associated asthma has asking for inhaler for her cough. This seems reasonable and I will prescribe her an inhaler. I gave her a spacer. She is agreeable to this plan. Appear to prescribed through [facility]eds Lab Data Labs: Lab Results 01/22/24 Range/Units 12:51 SARS-CoV-2 (PCR) Negative SARS-CoV-2 (Negative) Influenza Type A (PCR) Negative PCR FLU A (Negative) Influenza Type B (PCR) Negative PCR FLU B (Negative) RSV (PCR) Negative PCR RSV (Negative) Imaging Data Chest x-ray: Radiologist's impression: 1. No acute cardiopulmonary disease is seen. Dictated by: Harish Cat MD @ 01/22/2024 13:46:36 Discharge Plan Discharge Clinical Impression: Acute viral syndrome Instructions: Viral Syndrome (ED) Additional Instructions: Use the inhaler as directed. If symptoms persist into the week follow-up the primary care provider for re-evaluation. Return to emergency department for new or worsening symptoms Prescriptions: No Action No Known Home Medications Follow Up/Referrals: Provider,Not a Local [Primary Care Provider] - Stand Alone Forms: [employer] Info Instructions
== END 2024-01-22 14:07 | disposition home or self-care (01) ==
PROVIDERS: Emergency Provider Student in an Organized Health Care Education/Training Program
DX: B34.9 Viral infection, unspecified (principal)
CPT/HCPCS: 71046; 87631; 99283

== ENCOUNTER 2024-01-27 09:03 | Outpatient (CLI) | payer BC, SELFPAY | END 2024-01-27 09:04 | disposition home or self-care (01) | PROVIDERS: Visit Provider Midwife | DX: Z34.93 Encounter for supervision of normal pregnancy, unspecified, third trimester (principal); Z3A.28 28 weeks gestation of pregnancy | CPT/HCPCS: 86592; 87086 ==

== ENCOUNTER 2024-02-15 13:30 | Outpatient (RCR) | payer BC, SELFPAY ==
--- NOTE | 2024-02-01 10:29 | URNOTE ---
Request received for authorization for Iron Sucrose (Venofer) ([id number]). Prior authorization is not required per BS website.
[2024-02-06 14:17] VITALS: BP 115/71; PULSE 104; RESP 16; TEMP 35.8; O2SAT 97
[2024-02-06] MEDS: IRON SUCROSE COMPLEX 200 MG in 0.9 % SODIUM CHLORIDE 100 ml 440 MG IVPB (14:45)
[2024-02-08 13:57] VITALS: BP 99/67; PULSE 97; RESP 16; TEMP 36.1; O2SAT 99
[2024-02-08] MEDS: IRON SUCROSE COMPLEX 200 MG in 0.9 % SODIUM CHLORIDE 100 ml 440 MG IVPB (14:18)
[2024-02-08 14:42] VITALS: BP 93/56; PULSE 78; RESP 16; O2SAT 98
[2024-02-08 15:19] VITALS: BP 96/51; PULSE 74; RESP 16; O2SAT 99
[2024-02-10 14:40] VITALS: BP 96/61; PULSE 64; RESP 16; TEMP 36.6; O2SAT 96
[2024-02-10] MEDS: IRON SUCROSE COMPLEX 200 MG in 0.9 % SODIUM CHLORIDE 100 ml 440 MG IVPB (14:55)
[2024-02-10] MEDS: SODIUM CHLORIDE 0.9 % (FLUSH) 10 ML SYRINGE IVF (15:03)
[2024-02-10] MEDS: 0.9 % SODIUM CHLORIDE 500 ML IV (15:03)
[2024-02-10 15:43] VITALS: BP 100/64; PULSE 91; TEMP 36.6; O2SAT 98
[2024-02-13 13:58] VITALS: BP 101/65; PULSE 99; RESP 16; TEMP 36.4; O2SAT 99
[2024-02-13] MEDS: SODIUM CHLORIDE 0.9 % (FLUSH) 10 ML SYRINGE IVF (14:30)
[2024-02-13] MEDS: IRON SUCROSE COMPLEX 200 MG in 0.9 % SODIUM CHLORIDE 100 ml 440 MG IVPB (14:32)
[2024-02-15] MEDS: IRON SUCROSE COMPLEX 200 MG in 0.9 % SODIUM CHLORIDE 100 ml 440 MG IVPB (14:02)
[2024-02-15 14:22] VITALS: BP 88/56; PULSE 89; RESP 16; O2SAT 97
[2024-02-15] MEDS: SODIUM CHLORIDE 0.9 % (FLUSH) 10 ML SYRINGE IVF (14:22)
[2024-02-15 14:59] VITALS: BP 91/57; PULSE 97; RESP 16; TEMP 36.8; O2SAT 97
== END 2024-08-04 23:59 | disposition home or self-care (01) ==
LOC: CCIC 13:30
PROVIDERS: Visit Provider Clinical Nurse Specialist
DX: O99.013 Anemia complicating pregnancy, third trimester (principal); D50.9 Iron deficiency anemia, unspecified
CPT/HCPCS: 96365; 96374; J1756; J7030

== ENCOUNTER 2024-02-24 15:19 | Outpatient (CLI) | payer BC, SELFPAY | END 2024-02-24 15:20 | disposition home or self-care (01) | LOC: NFLDREF 03-02 01:21 | PROVIDERS: Visit Provider Advanced Practice Midwife | DX: R35.0 Frequency of micturition (principal) | CPT/HCPCS: 87086 ==

== ENCOUNTER 2024-03-23 13:08 | Outpatient (CLI) | payer BC, SELFPAY ==
[2024-03-24 13:06] LABS: Strep B DNA Probe Negative (Negative)
[2024-03-25 10:16] LABS: Strep B Susceptibility Needed? No
== END 2024-03-23 13:09 | disposition home or self-care (01) ==
LOC: NFLDREF 13:08
PROVIDERS: Visit Provider Midwife
DX: Z34.93 Encounter for supervision of normal pregnancy, unspecified, third trimester (principal); Z3A.36 36 weeks gestation of pregnancy
CPT/HCPCS: 87081; 87653

== ENCOUNTER 2024-04-16 11:19 | Inpatient (IN) | payer BC, SELFPAY ==
[2024-04-16] VITALS (30 sets, daily range): BP systolic 96–161; BP diastolic 50–95; PULSE 48–117; RESP 18; TEMP 36.4–36.8; O2SAT 86–100; BMI 28.8
[2024-04-16 10:49] LABS: Appearance Urine Slightly Cloudy (Clear); Bilirubin Urine Negative (Negative); Blood Urine Trace-intact (Negative); Color Urine Light yellow (Yellow); Glucose Urine Negative (Negative); Ketones Urine Negative (Negative); Leukocyte Esterase Urine 2+ (Negative); Nitrite Urine Negative (Negative); Protein Urine Negative (Negative); Specific Gravity Urine 1.015 (1.000-1.030); Urobilinogen Urine 0.2 (0.2-1.0)
[2024-04-16 10:58] LABS: Amnisure Rom* POSITIVE; Bacteria Urine Many; Squamous Epithelial Cell Urine Moderate (None-Few); WBC Urine 25-50 (0-5)
--- NOTE | 2024-04-16 12:57 | W.PM.LDBA ---
Documented by User: Roxy Hernandez Sharronjourdanarjun 04/16/24 18:29 Subjective History of Present Illness Time Seen by Provider: 12:30 Date Seen: 04/16/24 Narrative: Patient is being admitted to Labor and Delivery for spontaneous early labor. She is a 29 year old at 38w5d gestation. Her full history and physical was dictated by Caroline Quiñones on 04/06/24. Please see this for details. AmniSure upon triage was positive. Nick called this morning after being up most of the night with contractions that she did not think were labor contractions, only Randy Camarena, as she has been having those. She reports noticing blood when she went to the bathroom after breakfast at approximately 0900. She called the unit then and was instructed to come in. She is resting in bed, overall comfortable, rating her worst pain at the highest contraction 5/10. Her is at her bedside and supportive. She states she would like to ambulate and utilize hydrotherapy and nitrous oxide to manage labor pain. She prefers to avoid an epidural as her last experience did not have positive outcomes for her. Specific Issues/Plans Nico It is a boy! (Her daughter's name is Carolyn) Pt is Religious- Please only RX tablets or liquid. No gelatin containing capsules. H&P completed 04/06/2023 by GRISELDA Grubbs # +UC before NOB visit in ED. Did not take abx initially. Repeated UA/UC at NOB negative. # Anemia. At NOB hgb 11.2, ferritin 5.7. Started PO iron., 8.2 at 28w. requesting IV infusion, insurance not covering will try liquid iron or Celebrate brand #Hx PP depression # Hx of Shoulder dystocia, required posterior arm for delivery Previous records indicate shoulder dystocia for unknown duration with 2020 only. Shawn and Suprapubic ineffective. Posterior arm was next step and delivered easily. No resuscitation needed, no injury. Flu: Covid: OB - Problem Based A/P Additional Plan (1) Anemia affecting : Status: Acute (2) Anxiety and depression: Problem details: No med use, exacerbates Status: Acute (3) : Status: Acute (4) PROM (premature rupture of membranes): Status: Acute Plan ASSESSMENT:?? 29 at 39 weeks 5 days gestation?? complicated by:??Anemia, hyperemesis gravidarum Labor type: Spontaneous, Early labor?? Category 1 FHR pattern.??? Labor complicated by: [ ]?? GBS negative ?? PLAN:?? 1. Routine intrapartum cares as ordered. Continue with expectant management?? 2. Monitoring per policy, intermittent 3. Planning unmedicated , use of nitrous oxide and hydrotherapy..Hep C negative. Candidate for analgesia of choice.??? 4. Patient encouraged to reposition and ambulate to promote physiologic labor and .?? 6. Anticipate ? Delivery/Labor/Induction Plan Plan: expectant management OB Result Labs Blood Type: A (+) positive Rubella: immune RPR/VDLR: nonreactive GBS Status: negative HBsAG: negative OB Exam Physical Exam Vital signs: Temp Pulse BP Pulse Ox 97.5 F L 81 110/63 98 04/16/24 12:46 04/16/24 10:08 04/16/24 10:08 04/16/24 10:14 Narrative: Physical exam unremarkable outside of below mentioned findings. Detailed Labor and Delivery Exam Patient Gravid: Yes Dilation (cm): 4 (Per RN exam) Cervix position: posterior (Per RN exam) Contraction Frequency: Every 10 min. (per cartridge assembling machine adjuster) Tachysystole: No Contraction intensity: Moderate Fetus (Single) Amniotic Membrane Status: SROM (This morning @ 0900 as per patient report ) Amniotic Membrane Fluid Description: Clear Heart Rate Baseline: 130 (Per RN with intermittent auscultation. Increases heard.) Documented by User: Kathy Durand CNM 04/17/24 00:06 Subjective History of Present Illness Narrative: Patient is being admitted to Labor and Delivery for spontaneous early labor. She is a 29 year old at 38w5d gestation. Her full history and physical was dictated by Caroline Quiñones on 04/06/24. Please see this for details. AmniSure upon triage was positive. Nick called this morning after being up most of the night with contractions that she did not think were labor contractions, only Rosemead Camarena, as she has been having those. She reports noticing blood when she went to the bathroom after breakfast at approximately 0900. She called the unit then and was instructed to come in. She is resting in bed, overall comfortable, rating her worst pain at the highest contraction 5/10. Her is at her bedside and supportive. She states she would like to ambulate and utilize hydrotherapy and nitrous oxide to manage labor pain. She prefers to avoid an epidural as her last experience did not have positive outcomes for her. A bedside US was performed on admit to confirm vertex presentation. Specific Issues/Plans Petty-ioana It is a boy! (Her daughter's name is Carolyn) Pt is Religious- Please only RX tablets or liquid. No gelatin containing capsules. H&P completed 04/06/2023 by GRISELDA Grubbs # +UC before NOB visit in ED. Did not take abx initially. Repeated UA/UC at NOB negative. # Anemia. At NOB hgb 11.2, ferritin 5.7. Started PO iron., 8.2 at 28w. requesting IV infusion, insurance not covering will try liquid iron or Celebrate brand #Hx PP depression # Hx of Shoulder dystocia, required posterior arm for delivery Previous records indicate shoulder dystocia for unknown duration with 2020 only. Shawn and Suprapubic ineffective. Posterior arm was next step and delivered easily. No resuscitation needed, no injury. Flu: Covid: OB - Problem Based A/P Additional Plan (1) Anemia affecting : Status: Acute (2) Anxiety and depression: Problem details: No med use, exacerbates Status: Acute (3) : Status: Acute (4) PROM (premature rupture of membranes): Status: Acute Plan ASSESSMENT:?? 29 at 39 weeks 5 days gestation?? complicated by:??Anemia, hyperemesis gravidarum Labor type: Spontaneous, Early labor?? Category 1 FHR pattern.??? Labor complicated by: anemia, Hx depression and hx shoulder dystocia ?? GBS negative ?? PLAN:?? 1. Routine intrapartum cares as ordered. Continue with expectant management?? 2. Monitoring per policy, intermittent 3. Planning unmedicated , use of nitrous oxide and hydrotherapy..Hep C negative. Candidate for analgesia of choice.??? 4. Patient encouraged to reposition and ambulate to promote physiologic labor and .?? 6. Anticipate ? I, Kathy Durand, RENY, CNM, was present for visit and have reviewed and agree with documentation by the Certified Nurse Midwifery Student.? OB Exam Physical Exam Narrative: Physical exam unremarkable outside of below mentioned findings. Psychiatric:? Alert and oriented x3? HEENT:? Normocephalic, atraumatic? Neck:? Supple without adenopathy or thyromegaly? Lungs:? Clear to auscultation bilaterally? Heart:? Regular rate and rhythm, no murmur, rub or gallop? Abdomen:? Soft, nontender, and gravid? Extremities:? No edema or erythema?
[2024-04-16] MEDS: LACTATED RINGERS 1000 ML 1,000 ML 1200 ML IV (22:25)
[2024-04-16 22:52] LABS: Basophils Absolute Auto 0.02 K/uL (0.00-0.30); Basophils Percent Auto 0.2 % (0.0-3.0); Eosinophils Absolute Auto 0.06 K/uL (0.00-0.50); Eosinophils Percent Auto 0.7 % (0.0-7.0); Hematocrit 36.9 % (33.0-51.0); Hemoglobin* 11.6 gm/dL (12.0-16.0); Immature Granulocytes Pct Auto 1.2 %; Lymphocytes Percent Auto 19.1 % (20-44); Mean Corpuscular HGB Conc 31 gm/dL (32-36); Mean Corpuscular Hemoglobin 24 pg (26-34); Mean Corpuscular Volume 77 fL (80-100); Monocytes Percent Auto 7.3 % (0.0-11.0); Neutrophils Absolute Auto 6.04 K/uL (1.7-7.0); Neutrophils Percent Auto 71.5 % (42.0-72.0); Platelet Count* 187 K/uL (140-440); RDW Coefficient of Variation % 22.6 % (11.5-15.5); White Blood Count* 8.45 K/uL (4.50-11.00)
[2024-04-16 22:54] LABS: Slide Review Reflex No
[2024-04-16] MEDS: ROPIVACAINE 0.2% 100 ml 100 ML 12 MG EPIDURAL (23:16)
[2024-04-16] MEDS: LIDOCAINE 2% (PF) 5 ML VIAL EPIDURAL (23:16)
--- NOTE | 2024-04-16 23:22 | PM.ANBPRC ---
[facility] Medical History (Updated 04/16/24 @ 18:29 by Roxy Rosado) Anemia affecting in first trimester ?O99.011 - Anemia complicating , first trimester (ICD-10) Anxiety and depression ?F41.9 - Anxiety disorder, unspecified (ICD-10) ?F32.A - Depression, unspecified (ICD-10) H. 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 Lives with: and kids Pets: none Abuse: Denies past/present Special Diet: Lactose intolerant Ok with a blood transfusion: yes Culture or moravian beliefs: denies RISK FACTORS Exercise Times/wk: not currently, encouraged when feeling better Depression/Anxiety: denies MIKE: 0 PHQ 9: 0 Seat Belt Use: Routinely Smoking: Denies past/present Alcohol/day: Denies while Caffeine: none Drug Use: Denies past/present Chicken Pox: Yes as a child MRSA: Denies What is your current living situation?: I presently have a place to live Problems where you live: no known problems In the past 12 months, utilities in danger of being shut off: no In past 12 months, lack of transportation kept you from medical appts, meetings, work, or getting things needed for daily living: no In the past 12 mos, have been you worried that your food would run out before you had money to buy more?: never true In the past 12 mos, the food you bought just didn't last and you didn't have money to buy more?: never true Smoking Status: Never smoker Do you use any of these nicotine containing products: None Second hand tobacco smoke exposure: No How often do you have a drink containing alcohol: never AUDIT-C Alcohol total score: 0 Non-prescribed substance use: denies use How often does anyone, including family, friends and others, physically hurt you: never How often does anyone, including family, friends and others, insult or talk down to you: never How often does anyone, including family, friends and others, threaten you with harm: never How often does anyone, including family, friends and others, scream or curse at you: never service: No Meds Home Medications and Allergies Home Medications ?Medication ?Instructions ?Recorded ?Confirmed ?Type diphenhydramine HCl 25 mg capsule 25 mg PO QHS 04/16/24 04/16/24 History (Benadryl) Allergies Allergy/AdvReac Type Severity Reaction Status Date / Time No Known Drug Allergies Allergy Verified 04/16/24 10:50 Results Labs Labs: Laboratory Results - last 24 hr 04/16/24 04/16/24 22:40 Unknown WBC 8.45 RBC 4.80 Hgb 11.6 L Hct 36.9 MCV 77 L MCH 24 L MCHC 31 L RDW Coeff of Sandrine 22.6 H Plt Count 187 Neut % (Auto) 71.5 Lymph % (Auto) 19.1 L Evangeline % (Auto) 7.3 Eos % (Auto) 0.7 Baso % (Auto) 0.2 Neut # (Auto) 6.04 Lymph # (Auto) 1.60 Evangeline # (Auto) 0.60 Eos # (Auto) 0.06 Baso # (Auto) 0.02 Abs Immat Gran (auto) 0.10 Imm/Tot Granulo (auto) 1.2 Urine Color Light yellow Urine Appearance Slightly Cloudy A Urine pH 7.0 Ur Specific Triplett 1.015 Urine Protein Negative Urine Glucose (UA) Negative Urine Ketones Negative Urine Blood Trace-intact A Urine Nitrite Negative Urine Bilirubin Negative Urine Urobilinogen 0.2 Ur Leukocyte Esterase 2+ A Urine RBC 2-5 A Urine WBC 25-50 A Ur Squamous Epith Cells Moderate A Urine Bacteria Many A Membrane Rupture POSITIVE Vital Signs Vital Signs: Last Vital Signs Temp 97.5 F L 04/16/24 22:38 Pulse 102 H 04/16/24 23:13 BP 129/57 L 04/16/24 23:13 Pulse Ox 100 04/16/24 23:10 Weight: 76.204 kg Height: 162.56 cm Anesthesia Procedures Epidural Insertion Patient Location: OB Start Time: 22:47 Stop Time: 23:30 Start Date: 04/16/24 Stop Date: 04/16/24 Reason for Block: primary anesthetic Patient Position: sitting Performed By: Aron Davila Preanesthetic Checklist: IV checked, risks and benefits discussed, surgical consent, monitors and equipment checked, pre-op evaluation, timeout performed and anesthesia consent Prep: chlorhexidine gluconate Monitoring: blood pressure monitoring, court recording monitor, continuous pulse oximetry and heart rate Approach: midline Vertebral Space: lumbar (1-5) Needle Type: Tuohy needle Injection Technique: continuous catheter (catheter) Needle gauge: 17 Needle Length (cm): 10 cm Needle Insertion Depth (cm): 5 Catheter Gauge: 19 Catheter Type: multi-orifice Catheter at skin depth (cm): 10 Test Dose Result: negative and lidocaine 1.5% with epinephrine 1 to 200,000
--- NOTE | 2024-04-16 23:30 | P.OBPN_ITS ---
Documented by User: Roxy Rosado 04/17/24 01:10 Subjective Time Seen by Provider: 23:30 Date Seen: 04/16/24 Narrative: Nick is a 29 yo, at 39w 5d gestation here for spontaneous PROM. Patient has been in early labor working through unmedicated , ambulating room and repositioning in bed since admission. Asked for cervical check as contractions grew increasingly intense. Cervical assessment 7 cm at 1999. Patient utilizing nitrous oxide as intensity increased.Patient experiencing urge to push with the increasing intensity. Product Manager [employer] at bedside encouraging to breathe through contractions and not to push until complete dilation. Ambulation and repositioning continued until complete. Began pushing at 2145, much coaching on technique and encouragement required to help focus patient on process and progression. Slow descent with pushing efforts. . After one hour patient desired an epidural. IV placement, labs drawn and fluid bolus given to prep for epidural. Objective Vital Signs: Last Vital Signs Temp 97.5 F L 04/16/24 22:38 Pulse 99 04/16/24 23:29 BP 127/50 L 04/16/24 23:29 Pulse Ox 100 04/16/24 23:10 Pelvic Exam Dilation (cm): 10 Effacement (%): 100 Station: 0 Contractions Contraction Frequency: 2 - 3.5 min apart Contraction pattern: Regular Contraction intensity: Strong/Firm Assessment Assessment: active labor Station: 0 Amniotic Membrane Status: SROM Status: Category ll Heart Rate Baseline: 130 (Per RN with intermittent auscultation. Increases heard.) Service Center Manager Variability: Moderate (6-25) Monitor Accelerations: Absent Monitor Decelerations: Early Plan Plan: Plan: 1. Routine intrapartum cares as ordered. 2. Plan for continuing with active labor, letting patient labor down through contractions. 3. Monitoring per policy, continuous 4. Plan changed from unmedicated to desiring an epidural for pain management. 5. Patient encouraged to reposition to promote physiologic labor and .?? 6. Anticipate ? Documented by User: Kathy Durand CNM 04/17/24 01:12 Subjective Narrative: Nick is a 29 yo, at 39w 5d gestation here for spontaneous PROM. Patient has been in early labor working through natural , ambulating room and repositioning in bed since admission. Asked for cervical check as contractions grew increasingly intense. Cervical assessment 7 cm at 1999. Patient utilizing nitrous oxide as intensity increased. Patient experiencing urge to push with the increasing intensity. Product Manager [employer] at bedside encouraging to breathe through contractions and not to push until complete dilation. Ambulation and repositioning continued until complete. Began pushing at 5, much coaching on technique and encouragement required to help focus patient on process and progression. Slow descent with pushing efforts. After one hour patient desired an epidural. IV placement, labs drawn and fluid bolus given to prep for epidural. Contractions Monitor mode: External Plan Plan: Plan: 1. Routine intrapartum cares as ordered. 2. Plan for continuing with active labor 3. Monitoring per policy, continuous 4. Plan changed from unmedicated plan to desiring an epidural for pain management. 5. Patient encouraged to reposition to promote physiologic labor and .?? 6. Anticipate ?
[2024-04-16] MEDS: LACTATED RINGERS 500 ML 500 ML 125 ML IV (23:49)
[2024-04-17] VITALS (49 sets, daily range): BP systolic 90–172; BP diastolic 46–94; PULSE 54–136; RESP 16–18; TEMP 36.4–36.9; O2SAT 93–100
[2024-04-17] MEDS: PHENYLEPHRINE 100 MCG/ML SYRINGE IVP (00:10)
[2024-04-17] MEDS: CALCIUM CARBONATE 500 MG CHEW PO ×3 (01:31→07:23)
[2024-04-17] MEDS: OXYTOCIN 30 unit/500 ML in NS 30 UNIT/500 ML BAG IVPB (04:04)
--- NOTE | 2024-04-17 04:29 | P.OBPN_ITS ---
Subjective Date Seen: 04/17/24 Narrative: Nick is now comfortable with her epidural. She rested/slept for about 1.5 hours after placement when she was laboring down. After this time baby felt in a better position and felt to have made descent. She once again began actively pushing. Her contractions began to space out again after this and so after a discussion with the patient and shared decision making it was decided to start Pitocin titration. After about 1.5 hours of pushing it was noted that progress was no longer being made and it seemed that Nick was loosing some energy. Some pushed had good strength behind them and others had less but baby did regress to its original position and in some cases a higher station. Dr. Liliana Fish was called and asked to come consult. She is on her way at this time to consult. Objective Vital Signs: Last Vital Signs Temp 97.9 F 04/17/24 04:10 Pulse 105 H 04/17/24 04:13 Resp 18 04/17/24 04:10 BP 110/56 L 04/17/24 04:13 Pulse Ox 99 04/17/24 03:33 Pelvic Exam Dilation (cm): 10 Effacement (%): 100 Station: 0 Contractions Monitor mode: External Contraction Frequency: 2-4 Contraction pattern: Regular Contraction intensity: Strong/Firm Pitocin Rate (mU/min): 1 Assessment Assessment: active labor Station: 0 Amniotic Membrane Status: SROM Status: Category ll Heart Rate Baseline: 145 (Per RN with intermittent auscultation. 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 29 at 39 weeks 6 days gestation?? complicated by:??Anemia, hyperemesis gravidarum Labor type: Spontaneous, prolonged second stage Category 2 FHR pattern.??? Labor complicated by: prolonged second stage, difficulty coping with contractions-now improved after epidural placement? GBS negative ?? PLAN:?? 1. Routine intrapartum cares as ordered. Continue with Pitocin titration per policy 2. Monitoring per policy, continuous 3. Epidural in place with good relief.?? 4. Patient encouraged and assisted to reposition to promote physiologic labor and .?? 5. Dr. Lynne called to consult on position and lack of progress. 6. Anticipate
[2024-04-17] MEDS: LACTATED RINGERS 500 ML 500 ML 125 ML IV (04:33)
--- NOTE | 2024-04-17 06:54 | W.PM.OBVAGDE ---
OB Procedure Vag Delivery Mother Details Mother Details: The patient is a 29 year-old, 6, Para 3, admitted on 04/16/24 at 39w 5Days gestation. : 6 Para: 3 Weeks Gestation: 39 Admission Date: 04/16/24 Additional Details Amniotic Membrane Status: SROM (This morning @ 0900 as per patient report ) Amniotic Membrane Rupture Date: 04/16/24 Amniotic Membrane Rupture Time: 09:00 Amniotic Membrane Fluid Description: Clear Analgesia/Anesthesia Type: Epidural Waterbirth: No Pitcoin: Yes Intrapartal Events: Prolonged Labor >20 Hrs and Prolonged 2nd Stage >2.5 Hrs Delivery augmentation: pitocin Labor Onset: 17:30 Complete: 21:35 Pushin:35 Heart: heart tones during second stage were [] Delivery Details Delivery Date: 04/17/24 Delivery Time: 06:30 Route of delivery: vacuum extraction Gender: Male Infant Viability: Alive; Heart Rate Present Position at Delivery: OA Delivery Details: Is complete and pushing at 9:35 p.m. on 04/16/2024 and pushed for 1.5 hours and was not tolerating the pain of pushing so got an epidural and rested for about 3 hours. During this time multiple position changes were performed including side lying release, pushing from sides and pushing on all fours. She pushing again at approximately 2:40 a.m. after the epidural and had some descent with position occiput posterior after pushing for 2 hours there was less descent than when she started pushing so Kathy Durand called me for a consultation. I arrived just after 5am and on exam was noted to be ROT presentation. Manual rotation was performed 4 times before the vertex remained in the OA position. Her bladder was drained with straight catheterization at 5:45 a.m. her Pitocin was increased to 3 milliunits/minute. After pushing for another 30 minutes a kiwi vacuum was applied on the occiput approximately 3 cm above the posterior fontanelle. The vacuum was applied at 6:24 a.m. Delivered via vacuum assisted vaginal delivery 6:30 a.m.. The vacuum was pulled through 2 contractions without pop offs. Infant was placed on maternal abdomen.? Cord was clamped and cut after a 60+ second delay. Nose and mouth were bulb suctioned.? weight pending. heart rate was category 1 and category 2 throughout with sporadic variable decelerations. 1 Minute Interval Total Score: 8 5 Minute Interval Total Score: 9 Additional Details Shoulder Dystocia: No Placenta Delivery Time: 06:45 Placental Delivery Description: Spontaneous Blood Loss: 75 Laceration: None Blood Loss Measurement Type: QBL Sponge/Need Count Correct: Yes Cord Vessel Description: 3 Vessels Indication for instrumentation: maternal exhaustion Event Summary Status: Mother and were stable after delivery. Disposition: floor
[2024-04-17] MEDS: IBUPROFEN 600 MG TABLET PO ×3 (07:21→20:23)
[2024-04-17] MEDS: CEFAZOLIN 2 GM INJ IVP (07:54)
[2024-04-17] MEDS: ACETAMINOPHEN 500 MG TABLET 1000 MG PO ×3 (09:54→23:51)
[2024-04-17] MEDS: OXYCODONE 5 MG TABLET PO (16:02)
[2024-04-17] MEDS: LANOLIN CREAM 1 APPLIC TOPICAL (21:25)
[2024-04-18 00:58] VITALS: BP 93/60; PULSE 72; RESP 16; TEMP 36.4; O2SAT 98
[2024-04-18] MEDS: OXYCODONE 5 MG TABLET PO ×2 (03:14→10:50)
[2024-04-18] MEDS: IBUPROFEN 600 MG TABLET PO ×2 (03:18→10:50)
[2024-04-18 06:32] LABS: Hemoglobin* 10.5 gm/dL (12.0-16.0)
[2024-04-18 06:45] VITALS: BP 101/68; PULSE 56; RESP 16; TEMP 36.6; O2SAT 98
[2024-04-18] MEDS: ACETAMINOPHEN 500 MG TABLET 1000 MG PO (06:51)
--- NOTE | 2024-04-18 09:53 | PM.ANPOST ---
Post Anesthesia Note Post Anesthesia Note Patient seen: Inpatient Respiratory Status: adequate Cardiovascular Status: adequate Mental Status: baseline Pain: adequate Temp: baseline Anesthetic awareness: N/A Complications: none Follow care: none
--- NOTE | 2024-04-18 10:34 | P.DS_ITS ---
DS: Providers Provider Date Seen: 04/18/24 Date of admission: 04/16/24 11:19 Primary care physician: Not a Local Provider Admitting Clinician: Kathy Durand CNM Consults: 04/17/24 06:11 Consult to Physician [CONS] Routine Comment: Consulting Provider: Traci Lynne Has provider been notified: Yes Attending Physician on discharge: Gerda Ross CNM Date of Discharge: 04/18/24 DS: Diagnosis Discharge Diagnosis (1) Vacuum extraction, delivered, current hospitalization: Status: Acute (2) Anemia affecting : Status: Acute (3) care and examination of lactating mother: Status: Acute Exam Narrative: Exam Narrative: VSS, afebrile GENERAL APPEARANCE: ?normal affect, alert, no distress MOOD: ?appropriate HEENT: normocephalic, neck supple, full ROM CHEST: ?Symmetrical chest wall movement. ?Normal respiratory effort. ?Clear to auscultation HEART: ?regular rate and rhythm ABDOMEN: ?soft, non-tender. Uterine fundus is firm, at Umbilicus, Midline and is appropriate for the stage of recovery. ?Bowel sounds present. PERINEUM: ?intact EXTREMITIES: ?normal and trace edema Const: Vital Signs, click to edit/add: Vital Signs - 24 hr 04/17/24 11:50 04/17/24 16:00 04/17/24 21:13 Temperature 97.7 F 97.5 F L 97.5 F L Pulse Rate [Pulse Oximeter] 58 L 55 L 57 L Respiratory Rate 16 16 16 Blood Pressure [Le ft Arm] 119/72 104/67 104/67 Pulse Oximetry 96 97 96 Oxygen Delivery Me thod Room Air Room Air Room Air 04/18/24 00:58 04/18/24 06:45 Temperature 97.6 F 97.8 F Pulse Rate [Pulse Oximeter] 72 56 L Respiratory Rate 16 16 Blood Pressure [Le ft Arm] 93/60 101/68 Pulse Oximetry 98 98 Oxygen Delivery Me thod Room Air Room Air Documenting provider has reviewed patient's vital signs: yes OB - DS: Summary Hospital Course Hospital Course: Nick is a 29 y.o. who was admitted to [facility] for labor. ?She had an NVD with vacuum extraction.?The patient feels well. ?The pain is well controlled with current medications she is using Oxycodone PRN. She would like a prescription for this to take at home. ?She has no new complaints. ?She is breast feeding and reports things are going well.? the patient has done well.? Vitals have been stable.? She has remained afebrile.? Has a good appetite, is tolerating a general diet. ?She is voiding without difficulty.? She is passing gas and has not had a bowel movement. She reports she has stool softeners at home reminded to take while taking narcotics to prevent constipation.? She is ambulating and denies any dizziness.? Has Small amount of rubra lochia. ?She is planning Paragard IUD for prevention. Peripartum Data Infant delivery method: Vaginal Laceration description: None Gender: Male Infant Discharge Plan: Home Status at Discharge Functional status at discharge: independent ambulation Overall status at discharge: patient is progressing back to baseline Time Spent with Patient Time attestation: Total time spent providing and/or coordinating discharge services: Time spent: Less than 30 minutes Discharge Plan Discharge Disposition: Home, Self-Care Date of Admission: 04/16/24 11:19 Attending Provider on Discharge: Gerda Ross Consulting Providers: Traci Lynne Primary Care Provider: Provider,Not a Local Condition: Stable Anticipated Discharge Date/Time: 04/18/24 12:00 Discharge Medications: New acetaminophen 500 mg Tablet 1,000 mg PO Q6H PRNQty: 0 0RF ibuprofen 600 mg Tablet 600 mg PO Q6H PRNQty: 60 0RF oxycodone 5 mg Tablet 5 mg PO Q6H PRN (Reason: Pain) Qty: 10 0RF ferrous sulfate 324 mg (65 mg iron) tablet,delayed release (DR/EC) 324 mg PO Q OTHER DAY Qty: 30 2RF Continued pantoprazole [Protonix] 40 mg tablet,delayed release (DR/EC) 40 mg PO QDAY Qty: 60 0RF diphenhydramine HCl [Benadryl] 25 mg capsule 25 mg PO QHS Discharge Orders: Discharge Order (Routine); Ordered 04/18/24 Ordered By: Gerda Ross Patient Education: OB Over the Counter Medication Information, OB Vaginal/Breast Feeding Additional Instructions: Discharge instructions were reviewed with the patient including signs and symptoms of infection and home going medications Nothing vaginally for 6 weeks: no tampons or intercourse Do not drive while taking narcotic pain medication(s) Off Work or School for 6 weeks 2-week visit: discuss feeding concerns, review control options and screen for anxiety/depression. 6-week visit for an annual exam. consultation services are available to all mothers and babies for the first year after delivery.? To make an appointment, please call [phone]. Activity Level: Activity as Tolerated Discharge Diet: Regular Follow Up Appointments: [facility] [Provider Group] Forms: [employer] Info Instructions
[2024-04-18] MEDS: BENZOCAINE/MENTHOL SPRAY 85 GM AEROSOL 1 APPLIC TOPICAL (12:34)
[2024-04-19 02:30] LABS: Rapid Plasma Reagin (RPR) Non Reactive (Non Reactive)
== END 2024-04-18 13:01 | disposition home or self-care (01) | DRG 560 ==
LOC: OB OUT 11:20 → OB 11:20
PROVIDERS: Admitting Provider Advanced Practice Midwife; Visit Provider Advanced Practice Midwife
DX: O42.02 Full-term premature rupture of membranes, onset of labor within 24 hours of rupture (principal); O63.1 Prolonged second stage (of labor); O63.0 Prolonged first stage (of labor); O32.4XX0 Maternal care for high head at term, not applicable or unspecified; O71.82 Other specified trauma to perineum and vulva; O99.02 Anemia complicating childbirth; D64.9 Anemia, unspecified; O99.344 Other mental disorders complicating childbirth; F41.9 Anxiety disorder, unspecified; F32.A Depression, unspecified; Z37.0 Single live birth; Z3A.38 38 weeks gestation of pregnancy
CPT/HCPCS: 01967; 36415; 76815; 81001; 81003; 84112; 85018; 85025; 86592; 87086; A9270; J0690; J2371; J2795; J7120

== ENCOUNTER 2024-04-27 07:52 | Emergency (ER) | payer BC, SELFPAY ==
--- NOTE | 2024-04-27 07:58 | ED.GENADULT ---
HPI - General Adult General Chief complaint: Breast Symptoms Stated complaint: mastitis Time Seen by Provider: 04/27/24 07:53 History of Present Illness HPI narrative: This 29-year-old female comes in with pain in of the inferior aspect of her right breast. She also reports fever on and off over the past 2 or 3 days. She delivered her 4th child about a week ago or so. She is continuing to breastfeed and suspects that she may have mastitis. She states that she attempted to get into the clinic but was unable to. She comes here stating to the nurse that it is against her denominational to have a male examine her breasts. Related Data Previous Rx's ?Medication ?Instructions ?Recorded acetaminophen 500 mg tablet 1,000 mg (2 x 500 mg) PO Q6H PRN 04/18/24 #0 tabs ferrous sulfate 324 mg (65 mg 324 mg PO Q OTHER DAY #30 tabs 04/18/24 iron) tablet,delayed release ibuprofen 600 mg tablet 600 mg PO Q6H PRN #60 tabs 04/18/24 dicloxacillin 500 mg capsule 500 mg PO Q6H #30 caps 04/27/24 Allergies Allergy/AdvReac Type Severity Reaction Status Date / Time No Known Drug Allergies Allergy Verified 04/27/24 08:06 Review of Systems Status of ROS: Reports: 10 or more systems reviewed and unremarkable except as noted in History and below Narrative: Constitutional: No weight gain or loss. Eyes: No discharge. No vision changes. HENT: No congestion, no sore throat, no ear pain. Cardiovascular: No chest pain, no palpitations. Respiratory: No shortness of breath, no wheezes, no cough. Gastrointestinal: No abdominal pain, no vomiting, no diarrhea. Genitourinary: No dysuria, no hematuria. Musculoskeletal: Normal range of motion. Skin: No rashes, no pruritis. Neurological: No dizziness, weakness, sensory change, speech change. Endo/Heme/Allergies: No bruising or bleeding. No polydipsia. Pysch: no suicidality, no anxiety, no insomnia. All other systems reviewed and are negative. [facility] Medical History (Updated 04/27/24 @ 08:20 by Fer Hull MD) Anemia affecting in first trimester ?O99.011 - Anemia complicating , first trimester (ICD-10) Anxiety and depression ?F41.9 - Anxiety disorder, unspecified (ICD-10) ?F32.A - Depression, unspecified (ICD-10) H. 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 Lives with: and kids Pets: none Abuse: Denies past/present Special Diet: Lactose intolerant Ok with a blood transfusion: yes Culture or zoroastrian beliefs: denies RISK FACTORS Exercise Times/wk: not currently, encouraged when feeling better Depression/Anxiety: denies MIKE: 0 PHQ 9: 0 Seat Belt Use: Routinely Smoking: Denies past/present Alcohol/day: Denies while Caffeine: none Drug Use: Denies past/present Chicken Pox: Yes as a child MRSA: Denies What is your current living situation?: I presently have a place to live Problems where you live: no known problems In the past 12 months, utilities in danger of being shut off: no In past 12 months, lack of transportation kept you from medical appts, meetings, work, or getting things needed for daily living: no In the past 12 mos, have been you worried that your food would run out before you had money to buy more?: never true In the past 12 mos, the food you bought just didn't last and you didn't have money to buy more?: never true Smoking Status: Never smoker Do you use any of these nicotine containing products: None Second hand tobacco smoke exposure: No How often do you have a drink containing alcohol: never AUDIT-C Alcohol total score: 0 Non-prescribed substance use: denies use How often does anyone, including family, friends and others, physically hurt you: never How often does anyone, including family, friends and others, insult or talk down to you: never How often does anyone, including family, friends and others, threaten you with harm: never How often does anyone, including family, friends and others, scream or curse at you: never service: No Exam Narrative: Exam Narrative: Constitutional: Well-developed, well-nourished, no acute distress. HEENT: Normocephalic, atraumatic. Neck: Normal range of motion. Nontender. Supple. Heart: Regular. No murmurs. Normal rate. Intact distal pulses. Lungs: Clear to auscultation. No chest discomfort. No wheezes, rhonchi, or rales. Breasts: Right breast has some erythema in the inferior aspect with tenderness in this area. There is no palpable evidence of abscess and no sign of drainage. Abdomen: Normal bowel sounds. Nontender. No rebound tenderness. Genitalia: Deferred. Back: No midline tenderness. Normal range of motion. Extremities: Normal range of motion. No injury. Skin: Intact. No rash. Warm. No erythema or pallor. Neurologic: No altered sensation. No weakness. Alert and oriented. Psychiatric: No suicidality. No anxiety or depression. No insomnia. Nursing notes and vitals signs are reviewed. Const: Vital Signs, click to edit/add: Vital Signs - 24 hr 04/27/24 08:00 Temperature 97.5 F L Pulse Rate [Pulse Oximeter] 93 Respiratory Rate 16 Blood Pressure [Ri ght Upper Arm] 98/93 H Pulse Oximetry 97 Oxygen Delivery Me thod Room Air Course Vital Signs Vital signs: Initial Vital Signs Temperature 97.5 F L 04/27/24 08:00 Temperature Source Oral 04/27/24 08:00 Pulse Rate 93 04/27/24 08:00 Respiratory Rate 16 04/27/24 08:00 Blood Pressure 98/93 H 04/27/24 08:00 Blood Pressure Mean 94 04/27/24 08:00 Blood Pressure Position Sitting 04/27/24 08:00 Pulse Oximetry 97 04/27/24 08:00 Oxygen Delivery Method Room Air 04/27/24 08:00 Vital Signs Temperature 97.5 F L 04/27/24 08:00 Pulse Rate 93 04/27/24 08:00 Respiratory Rate 16 04/27/24 08:00 Blood Pressure 98/93 H 04/27/24 08:00 Pulse Oximetry 97 04/27/24 08:00 Oxygen Delivery Method Room Air 04/27/24 08:00 Temperature 97.5 F L 04/27/24 08:00 Pulse Rate 93 04/27/24 08:00 Respiratory Rate 16 04/27/24 08:00 Blood Pressure 98/93 H 04/27/24 08:00 Pulse Oximetry 97 04/27/24 08:00 Oxygen Delivery Method Room Air 04/27/24 08:00 Medical Decision Making MDM Narrative Medical decision making narrative: This patient comes in with suspicion of mastitis and initially is stating that she will only have a woman examine her as it is against her denominational. I explained that that option is not available here in the emergency department at this time and she recognizes that this is her best option. With a nurse present in the room I did examine her right breast and there are findings suspicious for mastitis but no evidence of complications such as abscess. The patient received a prescription for dicloxacillin. I advised her regarding signs and symptoms that would indicate need for return re-evaluation. Discharge Plan Discharge Clinical Impression: Mastitis Patient Disposition: Home, Self-Care Condition: Stable Additional Instructions: Take medication as prescribed. Use [id number] medicines also as needed and directed. Continue to breastfeed. Return if worsening. Prescriptions: New dicloxacillin 500 mg capsule 500 mg PO Q6H Qty: 30 0RF No Action acetaminophen 500 mg Tablet 1,000 mg PO Q6H PRNQty: 0 0RF ibuprofen 600 mg Tablet 600 mg PO Q6H PRNQty: 60 0RF ferrous sulfate 324 mg (65 mg iron) tablet,delayed release (DR/EC) 324 mg PO Q OTHER DAY Qty: 30 2RF Follow Up/Referrals: Provider,Not a Local [Primary Care Provider] - Stand Alone Forms: [employer] Info Instructions
[2024-04-27 08:00] VITALS: BP 98/63; PULSE 93; RESP 16; TEMP 36.4; O2SAT 97; BMI 25.1
[2024-04-27 08:36] VITALS: BP 102/72; PULSE 93; RESP 16; TEMP 36.4
== END 2024-04-27 08:49 | disposition home or self-care (01) ==
LOC: ED 08:25
PROVIDERS: Emergency Provider Emergency Medicine Emergency Medical Services
DX: N61.0 Mastitis without abscess (principal)
CPT/HCPCS: 99283; 99284

== ENCOUNTER 2024-06-01 12:10 | Outpatient (CLI) | payer BC, SELFPAY ==
[2024-06-03 04:16] LABS: HPV Source Cervix; HPV, High Risk by TMA Not Detected
== END 2024-06-01 12:11 | disposition home or self-care (01) ==
PROVIDERS: Visit Provider Midwife
DX: Z39.1 Encounter for care and examination of lactating mother (principal); Z12.4 Encounter for screening for malignant neoplasm of cervix
CPT/HCPCS: 87624; 87625; 88141; 88142

== ENCOUNTER 2024-10-12 11:00 | Outpatient (RCR) | payer BC, SELFPAY ==
--- NOTE | 2024-08-24 17:49 | PT.OPEX ---
PT [place] Outpatient Eval PT [facility] Outpatient Eval Start: 08/17/24 08:45 Freq: Status: Active Protocol: Document 08/24/24 08:03 JOHANNA (Rec: 08/24/24 08:05 JOHANNA [id number]) E-signed By Mariela Cisneros PT Physical Therapy Outpatient Evaluation Insurance Information Recert Due Date 11/22/24 Insurance Name Medicaid,Blue Cross/Blue Shield Medical Diagnosis PF weakness in female other female genital prolapse Referring PALMIRA Asencio Subjective Subjective Sulekha () presents to PT with diagnosis of PF weakness in female and other female genital prolapse. Her symptoms started to become noticeable initially after her 3rd delivery, approx 3 years ago, but she did improve to near pre status. Then after the of her son on 04/17/24, her symptoms worsened. With the most recent delivery, the baby needed to be turned, she had a long labor and pushing for long period of time, and a vacuum was used. Her recovery has been slower than with her previous 3 deliveries. Initially post- she had very little control of her bladder and limited bladder sensation. Started to do PFM contractions per OB. At 6 weeks post-, she started to notice improvement in her symptoms. Her current symptoms are of GILBERT. Leaking occurs with bending, lifting, sneezing, and jumping. She is also struggling with constipation. Has BMs every other day. Feels constipated on days she doesn?t have a BM. Does stool softeners to try to help reduce her symptoms . Her return to sexual activity has also been slow. She has lower libido and does not feel confident with her healing. Struggle with ability to relax to allow for penetration despite her trying to relax. Pt is currently using the copper IUD for control and has not had a period. She has not had significant bleeding. Does have some discharge but feels like that is related to the IUD. Pt is very active and would like to return to working out. She is unsure what she can do due to her leaking with exercises. She will be leaving on Sep for [place] for 2-3 months and would like to learn what she can do improve her PFD including symptoms of GILBERT, constipation and sexual dysfunction. 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 With further questioning, pt is urinate frequently during the day, every hour. Does not wake to void at night. She denies any issue with urination and does feel like the bladder fully empties. She drinks appropriate amounts of fluid per day including 80 oz of water, and 16 oz of mushroom coffee. Her bowels symptoms are more constipated. He is hesitant to push to defecate due to it not feeling good and she gets HAs. Does try to relax and take her time and can usually fully empty her bowels then. Her stool type is 1-2 on the BSS. She gets mild urges to defecate and is able to control the urges. No FI symptoms. Her sexual dysfunction is more related to a change in sensation and not pain. Finding it harder to relax the muscles to allow penetration. Finn has a lower libido more so following the of this baby vs her prior deliveries. Does find certain positions are more comfortable then other. Pt has been working on PFM contraction/Kegels and does feel like she has a good contractions. Pt arrived late for her PT evaluation so was not able to complete assessment of her PFM function today. Will work on completing assessment over the next couple visits. With today's finding, pt is appropriate for further skilled PT services to assess and treat PFM dysfunction. Treatment will include use of therapeutic exercise, therapeutic activities, neuromuscular re-ed, manual therapy, and self cares for symptom reduction.. Plan of Care Rehabilitation Good Potential Physical Therapy Short term goals to be achieved in 4 weeks Goals 1. Able to report voiding intervals of 1X every 2-4 hours, >50% of the time. 2. Pt will demonstrate use of functional PFM/ precontraction to eliminate UI during bending, lifting, sneezing at least 50% of the time. 3. Will demonstrate an increase in PFM endurance to >6 sec holds X 10 reps, with full ability to relax between contractions, for ability to improve PFM coordination, reduce UI symptoms and improve QOL. 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 1. Independent with self-care program to allow for reduction in her UI and constipation symptoms 2. Will report an 80% reduction in her UI symptoms as seen with ability to stay dry 5 out of 7 days even with her return to her fitness routine. 3. Pt will report ability to defecate a minimal of 5 days a week without symptoms of constipation. 4. Pt will be able to demonstrate proper mechanics with lifting/carrying, including ability to manage IAP, to reduce GILBERT symptoms. 5. Pt able to demonstrate correct posture and pushing mechanics when defecating. 6. Pt will be able to return to prior level of sexual activity without symptoms 3 out of 4 trials. Coordination/ Patient Caregiver Communication With Treatment Plan/ Manual Therapy,Neuromuscular Re-ed,Self-Care/Home Direct Interventions Management,Therapeutic Activities,Therapeutic Exercises Frequency/Duration 1 time a week, for up to 12 visits Patient Will Be Completion of LTG(s),Skills Plateau,Independent w/HEP, Discharged From Independently Progressing Therapy Evaluation Billing Untimed Code 40 Treatment Minutes Complexity Moderate Certification Information Initial 08/24/24 Certification Date Ending Certification 11/22/24 Date Provider Signature Yes Required Provider Signature POC & Medical Necessity Shows Agreement With Physician NPI Number Write NPI# Here Physician Comment/ : Change Physician Signature Please Sign/Date Here & Date Requested
== END 2025-02-09 23:59 | disposition home or self-care (01) ==
PROVIDERS: Visit Provider Advanced Practice Midwife
DX: N81.89 Other female genital prolapse (principal); Z51.89 Encounter for other specified aftercare
CPT/HCPCS: 97110; 97140; 97162; 97535